=== PATIENT | female | born 1955 | race African-American/Black ===

== ENCOUNTER → 2017-05-03 | Outpatient (CLI) | payer BC ==
[~2017-05-03] MED LIST: AMLO5TAB2 PO; CLON0.1T PO; DORZ2SOL EACHEYE; DYA375C PO; LATA0.00 OP; LOS50T PO; METO25TA3 PO; METO25TA5 PO; NORVASC PO; PANT1INJ3 PO; PANTPAK PO; RANITAB32 OR; SIMV-8 PO; TRIATAB3 PO
[2017-05-03 10:18] LABS: Basophils # (auto) 0 uL; Basophils % (auto) 0.9 % (0.0-2.0); CONDITION Y; Eosinophils # (auto) 0.1 uL; Eosinophils % (auto) 2.6 % (0.0-7.0); Hematocrit 40.4 % (36.0-46.0); Hemoglobin 13.8 g/dL (12.2-16.2); Lymphocytes % (auto) 39.7 % (10.0-50.0); Mean Corpuscular Hemoglobin 30.5 pg (28.0-32.0); Mean Corpuscular Hgb Conc. 34.1 g/dL (32.0-36.0); Mean Corpuscular Volume 89.5 fL (80.0-100.0); Mean Platelet Volume 7.9 fL (7.4-10.4); Monocytes # (auto) 0.4 uL; Monocytes % (auto) 7.2 % (0.0-12.0); Neutrophils # (auto) 2.5 uL; Neutrophils % (auto) 49.6 % (37.0-80.0); Platelet Count (auto) 320 10^3/uL (140-450); Red Cell Distribution Width 12.7 % (11.6-16.0)
[2017-05-03 10:33] LABS: Albumin 3.8 g/dL (3.4-5.0); Alkaline Phosphatase 49 U/L (45-117); Anion Gap 8 (5-15); Aspartate Aminotransferase 22 U/L (15-37); BUN/Creatinine Ratio 21.6; Bilirubin, Total 0.7 mg/dL (0.2-1.0); Blood Urea Nitrogen 19 mg/dL (7-18); Calcium 8.9 mg/dL (8.5-10.1); Carbon Dioxide 26 mmol/L (21-32); Chloride 106 mmol/L (98-107); Cholesterol 116 mg/dL (< 200); GFR African American 84 mL/min; GFR Non-African American 69 mL/min; Glucose 103 mg/dL (74-106); HDL Cholesterol 65 mg/dL (40-59); LDL Cholesterol 55 mg/dL (< 100); Potassium 3.6 mmol/L (3.5-5.1); Sodium 140 mmol/L (136-145); Total Protein 7.5 g/dL (6.4-8.2); Triglycerides 82 mg/dL (< 150)
== END | disposition home or self-care (01) ==
LOC: LAB 09:43
PROVIDERS: ATTEND Physician Assistant
DX: B19.20 Unspecified viral hepatitis C without hepatic coma (principal); E11.9 Type 2 diabetes mellitus without complications; E88.81 Metabolic syndrome and other insulin resistance; J45.998 Other asthma
CPT/HCPCS: 36415; 80053; 80061; 82306; 83036; 84484; 85025; 87522

== ENCOUNTER → 2017-08-21 | Outpatient (CLI) | payer BC ==
[~2017-08-21] MED LIST changes: -LATA0.00 OP; +LATA0.0020 OP
[2017-08-21 11:10] LABS: Urine Bilirubin Negative (Negative); Urine Blood Negative /uL (Negative); Urine Glucose Normal (Normal); Urine Ketone Negative (Negative); Urine Mucus FEW (None Seen); Urine Nitrite Negative (Negative); Urine RBC <1 /hpf (0 - 4); Urine Urobilinogen Normal (Negative); Urine pH 6.5 (5.0-8.0)
[2017-08-21 11:11] LABS: Basophils # (auto) 0.1 uL; Basophils % (auto) 1.2 % (0.0-2.0); Eosinophils # (auto) 0.1 uL; Eosinophils % (auto) 1.4 % (0.0-7.0); Hematocrit 40.3 % (36.0-46.0); Lymphocytes # (auto) 2.3 uL; Mean Corpuscular Hemoglobin 31.7 pg (28.0-32.0); Mean Corpuscular Hgb Conc. 34.6 g/dL (32.0-36.0); Mean Corpuscular Volume 91.6 fL (80.0-100.0); Mean Platelet Volume 7.4 fL (6.9-10.8); Monocytes # (auto) 0.5 uL; Monocytes % (auto) 6.7 % (0.0-12.0); Neutrophils # (auto) 4.1 uL; Neutrophils % (auto) 57.7 % (37.0-80.0); Nucleated Red Blood Cells % 0.1 %; Platelet Count (auto) 324 10^3/uL (140-450); Red Cell Distribution Width 13.1 % (11.8-14.3)
[2017-08-21 11:26] LABS: Urine Color Straw (Yellow)
[2017-08-21 11:35] LABS: Albumin 3.9 g/dL (3.4-5.0); BUN/Creatinine Ratio 15.8; Bilirubin, Total 0.7 mg/dL (0.2-1.0); Calcium 8.9 mg/dL (8.5-10.1); Potassium 3.5 mmol/L (3.5-5.1); Total Protein 7.8 g/dL (6.4-8.2)
== END ==
LOC: LAB 10:48
PROVIDERS: ATTEND Internal Medicine
DX: I10 Essential (primary) hypertension (principal)
CPT/HCPCS: 36415; 80053; 81001; 84443; 85025

== ENCOUNTER → 2017-09-14 | Outpatient (CLI) | payer BC | END | disposition home or self-care (01) | LOC: XYW 13:43 | PROVIDERS: ATTEND Internal Medicine | DX: K76.0 Fatty (change of) liver, not elsewhere classified (principal) | CPT/HCPCS: 76705 ==

== ENCOUNTER → 2017-12-13 | Outpatient (CLI) | payer BC ==
[2017-12-13 13:07] LABS: Basophils # (auto) 0.1 uL; Basophils % (auto) 2.4 % (0.0-2.0); Eosinophils # (auto) 0.2 uL; Hematocrit 44.1 % (36.0-46.0); Hemoglobin 14.7 g/dL (12.2-16.2); Lymphocytes # (auto) 2.1 uL; Lymphocytes % (auto) 34.8 % (10.0-50.0); Mean Corpuscular Hemoglobin 30.1 pg (28.0-32.0); Mean Corpuscular Hgb Conc. 33.4 g/dL (32.0-36.0); Mean Corpuscular Volume 90.2 fL (80.0-100.0); Monocytes # (auto) 0.4 uL; Neutrophils # (auto) 3.3 uL; Neutrophils % (auto) 53.8 % (37.0-80.0); Nucleated Red Blood Cells % 0.4 %; Platelet Count (auto) 325 10^3/uL (140-450); Red Blood Cells 4.89 10^6/uL (4.0-5.20); Red Cell Distribution Width 12.8 % (11.8-14.3); White Blood Cell 6.2 10^3/uL (4.4-10.8)
[2017-12-13 14:04] LABS: Urine Bacteria NONE SEEN /hpf (None Seen); Urine Blood Negative /uL (Negative); Urine Specific Gravity 1.012 (1.001-1.035); Urine WBC 13 /hpf (0 - 5)
[2017-12-13 14:26] LABS: Folate (Folic Acid) 17.53 ng/mL (5.38-24)
[2017-12-13 14:27] LABS: Albumin 3.9 g/dL (3.4-5.0); BUN/Creatinine Ratio 14.6; Bilirubin, Total 0.7 mg/dL (0.2-1.0); CRP High Sensitivity 0.16 mg/dL (< 0.3); Calcium 9.4 mg/dL (8.5-10.1); Potassium 3.7 mmol/L (3.5-5.1); Total Protein 8.2 g/dL (6.4-8.2)
[2017-12-14 08:28] LABS: Hepatitis B Surface Antibody Positive
[2017-12-14 08:43] LABS: Hepatitis B Surface Antigen Negative (Negative)
[2017-12-14 09:06] LABS: Hepatitis A Total Antibody Positive; Hepatitis B Core Total AB Negative
[2017-12-14 09:11] LABS: Hepatitis C Antibody Positive (Negative)
== END | disposition home or self-care (01) ==
LOC: LAB 12:10
PROVIDERS: ATTEND Nurse Practitioner
DX: E11.22 Type 2 diabetes mellitus with diabetic chronic kidney disease (principal); I12.9 Hypertensive chronic kidney disease with stage 1 through stage 4 chronic kidney disease, or unspecified chronic kidney disease; N18.3 Chronic kidney disease, stage 3 (moderate); K21.9 Gastro-esophageal reflux disease without esophagitis; R19.7 Diarrhea, unspecified
CPT/HCPCS: 36415; 80053; 80061; 81001; 82043; 82607; 82746; 83036; 84443; 85025; 86141; 86704; 86706; 86708; 86803; 87340

== ENCOUNTER → 2017-12-18 | Outpatient (CLI) | payer BC | END | disposition home or self-care (01) | LOC: LAB 13:28 | PROVIDERS: ATTEND Nurse Practitioner | DX: E11.9 Type 2 diabetes mellitus without complications (principal); K21.9 Gastro-esophageal reflux disease without esophagitis; R19.7 Diarrhea, unspecified | CPT/HCPCS: 82270 ==

== ENCOUNTER → 2017-12-25 | Outpatient (CLI) | payer BC ==
[2017-12-25 13:16] LABS: Free T4 (Free Thyroxine) 1.16 ng/dL (0.89-1.76)
[2017-12-25 13:17] LABS: Free T3 2.43 pg/mL (2.3-4.2)
== END | disposition home or self-care (01) ==
LOC: LAB 12:22
PROVIDERS: ATTEND Nurse Practitioner
DX: K03.9 Disease of hard tissues of teeth, unspecified (principal)
CPT/HCPCS: 36415; 84439; 84443; 84481

== ENCOUNTER → 2018-01-11 | Outpatient (CLI) | payer BC | END | disposition home or self-care (01) | LOC: LAB 15:05 | PROVIDERS: ATTEND Internal Medicine Gastroenterology | DX: R10.9 Unspecified abdominal pain (principal) | CPT/HCPCS: 82705; 82784; 83516; 86255 ==

== ENCOUNTER → 2018-01-22 | Outpatient (CLI) | payer BC | END | disposition home or self-care (01) | LOC: LAB 11:49 | PROVIDERS: ATTEND Internal Medicine | DX: Z01.89 Encounter for other specified special examinations (principal); I13.0 Hypertensive heart and chronic kidney disease with heart failure and stage 1 through stage 4 chronic kidney disease, or unspecified chronic kidney disease; N18.2 Chronic kidney disease, stage 2 (mild); I50.32 Chronic diastolic (congestive) heart failure; K21.9 Gastro-esophageal reflux disease without esophagitis | CPT/HCPCS: 36415; 83880; 85379; 87804 ==

== ENCOUNTER → 2018-03-05 | Outpatient (CLI) | payer BC ==
[~2018-03-05] MED LIST changes: +IOHEXOL 350 MG/ML 100ML IJ ONE
[2018-03-05 09:00] VITALS: BP 132/66
== END | disposition home or self-care (01) ==
LOC: XYW 08:28
PROVIDERS: ATTEND Internal Medicine Cardiovascular Disease
DX: J45.909 Unspecified asthma, uncomplicated (principal); I10 Essential (primary) hypertension; E88.81 Metabolic syndrome and other insulin resistance
CPT/HCPCS: 93017

== ENCOUNTER 2018-03-13 07:53 | Day surgery (SDC) | payer BC ==
[~2018-03-13] VITALS: Ht 154.9 cm; Wt 81.6 kg
[~2018-03-13 07:53] MED LIST changes: -IOHEXOL 350 MG/ML 100ML IJ ONE
[2018-03-13] MEDS ORDERED: NITROGLYCERIN 0.4 MG SL TAB SL ONE (08:00)
[2018-03-13] MEDS ORDERED: ASPirin 81 mg TAB PO ONE (08:00)
[2018-03-13] MEDS ORDERED: METOPROLOL TARTRATE 25 MG TAB PO ONE (08:15)
[2018-03-13 08:55] LABS: Basophils # (auto) 0.1 uL; Basophils % (auto) 1.2 % (0.0-2.0); Eosinophils # (auto) 0.1 uL; Eosinophils % (auto) 1.8 % (0.0-7.0); Hemoglobin 14.6 g/dL (12.2-16.2); Lymphocytes % (auto) 33.5 % (10.0-50.0); Mean Corpuscular Hemoglobin 30.6 pg (28.0-32.0); Mean Corpuscular Volume 89.8 fL (80.0-100.0); Monocytes # (auto) 0.4 uL; Monocytes % (auto) 7.6 % (0.0-12.0); Neutrophils # (auto) 3.3 uL; Neutrophils % (auto) 55.9 % (37.0-80.0); Nucleated Red Blood Cells % 0.1 %; Platelet Count (auto) 305 10^3/uL (140-450); Red Blood Cells 4.79 10^6/uL (4.0-5.20); White Blood Cell 5.9 10^3/uL (4.4-10.8)
[2018-03-13 09:04] LABS: INR 0.95 (0.9-1.15); Partial Thromboplastin Time 29.1 sec (22.64-33.71); Prothrombin Time 10.4 sec (9.37-12.3)
[2018-03-13 09:17] LABS: Alanine Aminotransferase 32 U/L (13-56); Albumin 3.8 g/dL (3.4-5.0); Alkaline Phosphatase 58 U/L (45-117); Anion Gap 8 (5-15); Aspartate Aminotransferase 24 U/L (15-37); Bilirubin, Total 0.6 mg/dL (0.2-1.0); Blood Urea Nitrogen 16 mg/dL (7-18); Calcium 9.4 mg/dL (8.5-10.1); Carbon Dioxide 28 mmol/L (21-32); Chloride 103 mmol/L (98-107); GFR African American 77 mL/min; GFR Non-African American 64 mL/min; Glucose 120 mg/dL (74-106); Potassium 3.9 mmol/L (3.5-5.1); Sodium 139 mmol/L (136-145); Total Protein 7.7 g/dL (6.4-8.2)
[2018-03-13] MEDS ORDERED: SODIUM CHLORIDE 0.9% 1,000 ML IV ONE ×2 (11:36)
[2018-03-13 12:58] VITALS: BP 153/87
[2018-03-13] MEDS ORDERED: ANGIOMAX 250 MG VIAL IV ONE (15:23)
[2018-03-13] MEDS ORDERED: fentaNYL CITRATE 100 MCG/2 ML VL ONE (15:23)
[2018-03-13] MEDS ORDERED: IODIXANOL 320MG/ML 100ML BTL IV ONE (15:24)
[2018-03-13] MEDS ORDERED: SODIUM CHL 0.9% 0 ML ONE (15:24)
[2018-03-13] MEDS ORDERED: MIDAZOLAM HCL 1MG/1ML-2 ML VIAL ONE (15:24)
[2018-03-13] MEDS ORDERED: diphenhdrAMINE HCL 50 MG/1 ML VL ONE (15:25)
[2018-03-13] MEDS ORDERED: LIDOCAINE 2%HCL (LOCAL ANESTH.) INJ 20ML MDV ONE (15:27)
[2018-03-13] MEDS ORDERED: VERAPAMIL 2.5MG/ML INJ 2ML VIAL IV ONE (15:37)
[2018-03-13] MEDS ORDERED: ONDANSETRON HCL 4 MG/2 ML VIAL ONE (15:46)
[2018-03-13] MEDS ORDERED: HEPARIN 1,000 UNITS/ml 1ML VIAL ONE (15:49)
[2018-03-13] MEDS ORDERED: ACETAMINOPHEN 500 MG TAB PO ONE ×2 (18:00→18:02)
== END 2018-03-13 18:45 | disposition home or self-care (01) ==
LOC: ER 07:53 → CATH 1 11:59
PROVIDERS: ATTEND Internal Medicine Cardiovascular Disease
DX: I11.9 Hypertensive heart disease without heart failure (principal); E66.9 Obesity, unspecified; Z68.34 Body mass index [BMI] 34.0-34.9, adult; E11.39 Type 2 diabetes mellitus with other diabetic ophthalmic complication; H40.9 Unspecified glaucoma; E78.00 Pure hypercholesterolemia, unspecified; I10 Essential (primary) hypertension; J45.909 Unspecified asthma, uncomplicated; G47.30 Sleep apnea, unspecified; Z90.710 Acquired absence of both cervix and uterus; Z87.891 Personal history of nicotine dependence; E78.5 Hyperlipidemia, unspecified
CPT/HCPCS: 36415; 71045; 71275; 80053; 82962; 83880; 84443; 84484; 85025; 85610; 85730; 93005; 93306; 93458; C1887; C1894; J1200; J1644; J2250; J7030; Q9967; 99152; J2405

== ENCOUNTER → 2018-07-09 | Outpatient (CLI) | payer BC ==
[~2018-07-09] MED LIST changes: -DORZ2SOL EACHEYE; +DORZ2SOL17 EACHEYE; -METO25TA3 PO; +METO25TA4 PO
[2018-07-09 15:06] LABS: BUN/Creatinine Ratio 14.6; Calcium 8.8 mg/dL (8.5-10.1); Potassium 3.5 mmol/L (3.5-5.1)
[2018-07-12 20:10] LABS: IgE Mouse Urine <0.10 kU/L (Class 0)
== END | disposition home or self-care (01) ==
LOC: LAB 14:00
PROVIDERS: ATTEND Internal Medicine Pulmonary Disease
DX: J45.909 Unspecified asthma, uncomplicated (principal)
CPT/HCPCS: 36415; 80048; 82785

== ENCOUNTER → 2018-08-23 | Outpatient (CLI) | payer BC ==
[~2018-08-23] MED LIST changes: +AMLO5TAB13 PO; -AMLO5TAB2 PO
[2018-08-23 09:57] LABS: Urine Bacteria NONE SEEN /hpf (None Seen); Urine Blood Negative /uL (Negative); Urine Mucus FEW (None Seen); Urine Specific Gravity 1.019 (1.001-1.035); Urine WBC 1 /hpf (0 - 5)
[2018-08-23 10:28] LABS: Albumin 3.6 g/dL (3.4-5.0); Calcium 9.1 mg/dL (8.5-10.1)
[2018-08-23 10:30] LABS: BUN/Creatinine Ratio 13.7; Total Protein 7.9 g/dL (6.4-8.2)
[2018-08-23 10:37] LABS: Bilirubin, Total 0.8 mg/dL (0.2-1.0)
== END | disposition home or self-care (01) ==
LOC: LAB 09:30
PROVIDERS: ATTEND Nurse Practitioner
DX: E78.5 Hyperlipidemia, unspecified (principal); E55.9 Vitamin D deficiency, unspecified
CPT/HCPCS: 36415; 80053; 80061; 81001; 82043; 82306; 83036; 84443

== ENCOUNTER → 2018-12-04 | Outpatient (CLI) | payer BC | END | disposition home or self-care (01) | LOC: XYW 14:21 | PROVIDERS: ATTEND Psychiatry & Neurology Neurology | DX: I63.9 Cerebral infarction, unspecified (principal) | CPT/HCPCS: 93886 ==

== ENCOUNTER 2019-02-12 14:18 | Emergency (ER) | payer BC ==
[~2019-02-12] VITALS: Ht 152.4 cm; Wt 79.4 kg
[2019-02-12] MEDS ORDERED: SODIUM CHLORIDE 0.9% 1,000 ML IV ONE ×3 (14:28→14:30)
[2019-02-12] MEDS ORDERED: IOHEXOL 300 MG/ML 100ML BOTTLE IJ ONE (14:33)
[2019-02-12 14:39] LABS: Basophils # (auto) 0.1 uL; Basophils % (auto) 1.6 % (0.0-2.0); Eosinophils # (auto) 0.1 uL; Eosinophils % (auto) 1.5 % (0.0-7.0); Hematocrit 45.7 % (36.0-46.0); Hemoglobin 15.4 g/dL (12.2-16.2); Lymphocytes # (auto) 2.5 uL; Lymphocytes % (auto) 35.4 % (10.0-50.0); Mean Corpuscular Hemoglobin 30.9 pg (28.0-32.0); Mean Corpuscular Hgb Conc. 33.7 g/dL (32.0-36.0); Mean Corpuscular Volume 91.4 fL (80.0-100.0); Monocytes # (auto) 0.6 uL; Monocytes % (auto) 8.2 % (0.0-12.0); Neutrophils # (auto) 3.7 uL; Neutrophils % (auto) 53.3 % (37.0-80.0); Nucleated Red Blood Cells % 0.2 %; Platelet Count (auto) 317 10^3/uL (140-450); Red Cell Distribution Width 12.6 % (11.8-14.3)
[2019-02-12 14:55] LABS: INR 0.95 (0.9-1.15); Partial Thromboplastin Time 29.9 sec (23.78-33.04); Prothrombin Time 10.2 sec (9.27-12.13)
[2019-02-12 14:57] LABS: Alanine Aminotransferase 33 U/L (13-56); Albumin 4.2 g/dL (3.4-5.0); Anion Gap 4 (5-15); Aspartate Aminotransferase 23 U/L (15-37); BUN/Creatinine Ratio 19.5; Blood Urea Nitrogen 17 mg/dL (7-18); Calcium 9.7 mg/dL (8.5-10.1); Carbon Dioxide 29 mmol/L (21-32); Chloride 104 mmol/L (98-107); GFR African American 84 mL/min; GFR Non-African American 70 mL/min; Glucose 95 mg/dL (74-106); Magnesium 2.3 mg/dL (1.6-2.6); Potassium 4.1 mmol/L (3.5-5.1); Sodium 137 mmol/L (136-145)
[2019-02-12 15:02] LABS: Alkaline Phosphatase 67 U/L (45-117); Bilirubin, Total 0.5 mg/dL (0.2-1.0); Total Protein 8.7 g/dL (6.4-8.2)
[2019-02-12 16:28] VITALS: BP 138/60
[2019-02-12] MEDS ORDERED: KETOROLAC TROMETH 30 MG/ML 1ML VIAL IV ONE (16:30)
[2019-02-12 16:36] LABS: Urine Bacteria NONE SEEN /hpf (None Seen); Urine Blood Negative /uL (Negative); Urine Specific Gravity 1.013 (1.001-1.035); Urine WBC <1 /hpf (0 - 5)
[2019-02-14 15:16] LABS: Amylase 62 U/L (25-115); Lipase 193 U/L (73-393)
== END 2019-02-12 17:14 | disposition home or self-care (01) ==
LOC: ER 14:21
DX: M79.10 Myalgia, unspecified site (principal); E11.9 Type 2 diabetes mellitus without complications; J45.909 Unspecified asthma, uncomplicated; I10 Essential (primary) hypertension; E78.5 Hyperlipidemia, unspecified; Z79.899 Other long term (current) drug therapy
CPT/HCPCS: 36415; 71046; 71260; 74177; 80053; 81001; 82150; 83036; 83690; 83735; 84484; 85025; 85610; 85730; 93005; 99284; J7030; Q9967

== ENCOUNTER 2019-04-30 08:59 | Emergency (ER) | payer BC ==
[~2019-04-30] VITALS: Ht 154.9 cm; Wt 80.7 kg
[2019-04-30] MEDS ORDERED: HYDROcodone-ACET 10/325MG TAB PO ONE (09:30)
[2019-04-30 10:55] VITALS: BP 144/70
== END 2019-04-30 10:56 | disposition home or self-care (01) ==
LOC: ER 09:03
DX: R51 Headache (principal); E11.9 Type 2 diabetes mellitus without complications; E78.5 Hyperlipidemia, unspecified; I10 Essential (primary) hypertension; J45.909 Unspecified asthma, uncomplicated; Z90.710 Acquired absence of both cervix and uterus; Z79.899 Other long term (current) drug therapy
CPT/HCPCS: 70450

== ENCOUNTER → 2019-05-10 | Outpatient (CLI) | payer BC | END | disposition home or self-care (01) | LOC: LAB 11:47 | DX: H57.11 Ocular pain, right eye (principal); M25.50 Pain in unspecified joint | CPT/HCPCS: 36415; 85652; 86141 ==

== ENCOUNTER 2019-07-22 15:24 | Inpatient (IN) | payer BC ==
[~2019-07-22] VITALS: Ht 154.9 cm; Wt 86.0 kg
[~2019-07-22 15:24] MED LIST changes: -AMLO5TAB13 PO; +AMLO5TAB15 PO; +METO25TA36 PO; -METO25TA4 PO
[2019-07-22 16:30] LABS: Albumin 3.6 g/dL (3.4-5.0); BUN/Creatinine Ratio 17.7; Calcium 8.8 mg/dL (8.5-10.1); Potassium 3.2 mmol/L (3.5-5.1)
[2019-07-22 16:33] LABS: Bilirubin, Total 0.9 mg/dL (0.2-1.0); Total Protein 7.7 g/dL (6.4-8.2)
[2019-07-22] MEDS ORDERED: SODIUM CHLORIDE 0.9% 1,000 ML IV ONE (17:00)
[2019-07-22 17:13] LABS: Urine Bacteria FEW /hpf (None Seen); Urine Blood Negative /uL (Negative); Urine Specific Gravity 1.011 (1.001-1.035); Urine WBC 3 /hpf (0 - 5)
[2019-07-22] MEDS ORDERED: ONDANSETRON HCL 4 MG/2 ML VIAL IV ONE (17:15)
[2019-07-22] MEDS ORDERED: MORPHINE SULF INJ 2 MG/ML SYRINGE 1ML IV PRN ×2 (18:00)
[2019-07-22] MEDS: SOD CHL 0.9%/ KCL 20MEQ 1,000 ML IV SCH (18:00)
[2019-07-22] MEDS ORDERED: ACETAMINOPHEN 500 MG TAB PO PRN (18:00)
[2019-07-22] MEDS ORDERED: LEVOFLOXACIN 500MG 100 ML IV ONE (18:00)
[2019-07-22] MEDS ORDERED: NITROGLYCERIN 0.4 MG SL TAB SL PRN (18:00)
[2019-07-22 18:11] LABS: Basophils # (auto) 0.1 uL; Basophils % (auto) 0.5 % (0.0-2.0); Eosinophils # (auto) 0.1 uL; Eosinophils % (auto) 0.9 % (0.0-7.0); Hemoglobin 14.1 g/dL (12.2-16.2); Lymphocytes # (auto) 1.2 uL; Lymphocytes % (auto) 12.1 % (10.0-50.0); Mean Corpuscular Hemoglobin 31.1 pg (28.0-32.0); Mean Corpuscular Hgb Conc. 33.6 g/dL (32.0-36.0); Mean Corpuscular Volume 92.5 fL (80.0-100.0); Monocytes # (auto) 0.5 uL; Monocytes % (auto) 5.1 % (0.0-12.0); Neutrophils # (auto) 7.7 uL; Neutrophils % (auto) 81.4 % (37.0-80.0); Nucleated Red Blood Cells % 0.3 %; Platelet Count (auto) 278 10^3/uL (140-450); Red Blood Cells 4.54 10^6/uL (4.0-5.20); Red Cell Distribution Width 12.7 % (11.8-14.3); White Blood Cell 9.5 10^3/uL (4.4-10.8)
[2019-07-22] MEDS ORDERED: cloNIDine HCL 0.1 MG TAB PO PRN (18:15)
--- NOTE | 2019-07-22 18:41 | NUR ---
report from ER received report from ER nurse
[2019-07-22] MEDS: KETOROLAC TROMETH 30 MG/ML 1ML VIAL IV PRN (19:06)
--- NOTE | 2019-07-22 19:38 | NUR ---
OPENING NOTES RECEIVED REPORT FROM DAY SHIFT NURSE, JC. PT IS AWAKE AND ALERT AND ORIENTATED X4 WITH NO S/S OF DISTRESS NOR PAIN. NO S/S OF SOB. PT'S SON IS AT BEDSIDE. PT IS IN A PRIVATE ROOM. BED IS IN LOWEST POSITION WITH SIDE RAILS UP X 2. CALL LIGHT IS WITHIN REACH AND BED BRAKES ARE LOCKED. WILL MONITOR Q 1HR.
[2019-07-22] MEDS: metroNIDAZOLE 500MG/100ML 100 ML IV SCH (21:41)
[2019-07-22] MEDS: LATANOPROST 0.005 % OPTH(EYE) SOL 2.5ML OP SCH (21:41)
[2019-07-22] MEDS: DORZOLAMIDE HCL 2% OPTH(EYE) SOL 10ML EACHEYE SCH (21:41)
[2019-07-22] MEDS: cloNIDine HCL 0.1 MG TAB PO SCH (21:42)
[2019-07-22] MEDS: METOPROLOL SUCCINATE XL 50 MG TAB PO SCH (21:43)
[2019-07-22 21:47] VITALS: BP 156/70
[2019-07-22] MEDS ORDERED: FAMOTIDINE (10MG/ML) 2ML VL IV SCH (22:00)
[2019-07-22] MEDS ORDERED: CALC600T37 PO (23:33)
[2019-07-22] MEDS ORDERED: LORA-622 PO (23:33)
[2019-07-22] MEDS ORDERED: ASPI-231 PO (23:33)
[2019-07-22] MEDS ORDERED: BUDE0.5S IN (23:33)
[2019-07-22] MEDS ORDERED: BIMA0.01 EACHEYE (23:33)
[2019-07-22] MEDS ORDERED: POTA1080 PO (23:33)
[2019-07-22] MEDS ORDERED: BIOT10TA2 PO (23:33)
[2019-07-22] MEDS ORDERED: PANT40TA2 PO (23:33)
[2019-07-22] MEDS ORDERED: OMEGCAP2 PO (23:33)
[2019-07-22] MEDS ORDERED: MULT-242 OR (23:33)
[2019-07-22] MEDS ORDERED: NIFE30TA77 PO (23:33)
[2019-07-22] MEDS ORDERED: ZINC50TA2 PO (23:33)
[2019-07-23] MEDS: ONDANSETRON HCL 4 MG/2 ML VIAL IV PRN ×2 (04:33→10:25)
[2019-07-23 05:20] VITALS: BP 132/65
[2019-07-23] MEDS: metroNIDAZOLE 500MG/100ML 100 ML IV SCH ×3 (05:30→21:20)
[2019-07-23 06:26] LABS: Basophils # (auto) 0.1 uL; Basophils % (auto) 0.5 % (0.0-2.0); Eosinophils # (auto) 0.2 uL; Hematocrit 39.7 % (36.0-46.0); Hemoglobin 13.3 g/dL (12.2-16.2); Lymphocytes # (auto) 1.4 uL; Lymphocytes % (auto) 14.2 % (10.0-50.0); Mean Corpuscular Hemoglobin 30.9 pg (28.0-32.0); Mean Corpuscular Hgb Conc. 33.4 g/dL (32.0-36.0); Mean Corpuscular Volume 92.7 fL (80.0-100.0); Monocytes # (auto) 0.7 uL; Monocytes % (auto) 7.1 % (0.0-12.0); Neutrophils # (auto) 7.8 uL; Neutrophils % (auto) 76.2 % (37.0-80.0); Platelet Count (auto) 245 10^3/uL (140-450); Red Blood Cells 4.28 10^6/uL (4.0-5.20); Red Cell Distribution Width 12.4 % (11.8-14.3); White Blood Cell 10.2 10^3/uL (4.4-10.8)
[2019-07-23 06:39] LABS: INR 1.03 (0.9-1.15); Partial Thromboplastin Time 31.9 sec (23.64-32.05)
[2019-07-23 06:49] LABS: Albumin 3.1 g/dL (3.4-5.0); Calcium 8.1 mg/dL (8.5-10.1); Potassium 3.4 mmol/L (3.5-5.1)
[2019-07-23 06:52] LABS: BUN/Creatinine Ratio 13.1; Bilirubin, Total 0.9 mg/dL (0.2-1.0); Total Protein 6.7 g/dL (6.4-8.2)
--- NOTE | 2019-07-23 07:22 | NUR ---
CLOSING NOTES ENDORSED CARE TO DAY SHIFT NURSEFARHAT.
--- NOTE | 2019-07-23 08:00 | NUR ---
Opening Shift Note Assumed care of patient, awake and alert. No S/S of distress/SOB or pain. Instructed on POC and to call for assist PRN, will continue to monitor for changes Q1hr and PRN. Addendum: 07/23/19 at 1903 by MARIO NAZARIO RN wrong patient
[2019-07-23] MEDS: SOD CHL 0.9%/ KCL 20MEQ 1,000 ML IV SCH ×2 (08:39→18:13)
[2019-07-23 08:45] VITALS: BP 141/73
[2019-07-23] MEDS ORDERED: POTASSIUM CHLORIDE 40 MEQ, LIDOCAINE 1% (LOCAL ANESTH.) 4 ML in SODIUM CHL 0.9% 100 ML IV ONE (09:45)
[2019-07-23] MEDS ORDERED: PANTOPRAZOLE 40 MG TAB PO SCH (10:00)
[2019-07-23] MEDS: NIFEdipine ER 30 MG TAB PO SCH (10:19)
[2019-07-23] MEDS: cloNIDine HCL 0.1 MG TAB PO SCH (10:20)
[2019-07-23] MEDS: DORZOLAMIDE HCL 2% OPTH(EYE) SOL 10ML EACHEYE SCH ×2 (10:20→21:22)
[2019-07-23] MEDS: LEVOFLOXACIN 500MG 100 ML IV SCH (11:15)
[2019-07-23] MEDS ORDERED: DICYCLOMINE HCL 10 MG CAP PO ONE (12:00)
[2019-07-23] MEDS ORDERED: DICYCLOMINE HCL (10MG/ML) 2 ML AMPULE IM SCH (12:00)
[2019-07-23] MEDS ORDERED: POTASSIUM CHL 20 Meq TABLET PO ONE (12:30)
[2019-07-23 12:36] VITALS: BP 124/69
[2019-07-23] MEDS: DICYCLOMINE HCL 10 MG CAP PO SCH ×2 (14:00→21:20)
[2019-07-23] MEDS: VANCOMYCIN HCL 125MG/5ML ORAL SOL PO SCH ×3 (14:21→21:28)
--- NOTE | 2019-07-23 15:30 | NUR ---
Assumed care of patient from other RN. Patient ambulating in room uncomplaining. No obvious signs of distress SOB/pain. Patient encouraged to call for assistance as needed.
--- NOTE | 2019-07-23 16:10 | NUR ---
Patient ambulating on unit. No obvious distress at this time. Addendum: 07/23/19 at 1903 by MARIO NAZARIO RN wrong patient
[2019-07-23 17:00] VITALS: BP 133/73
--- NOTE | 2019-07-23 17:50 | NUR ---
Pain Patient stated that the Toradol did not help the pain in her left shoulder and it has gotten more severe. IV Dilaudid to be given. Addendum: 07/23/19 at 1903 by MARIO NAZARIO RN wrong patient
[2019-07-23] MEDS: PANTOPRAZOLE 40 MG TAB PO SCH (21:21)
[2019-07-23] MEDS: METOPROLOL SUCCINATE XL 50 MG TAB PO SCH (21:21)
[2019-07-23] MEDS: LATANOPROST 0.005 % OPTH(EYE) SOL 2.5ML OP SCH (21:22)
[2019-07-23] MEDS ORDERED: SIMV-13 PO (21:32)
[2019-07-23] MEDS ORDERED: cloNIDine HCL 0.1 MG TAB PO SCH (22:00)
[2019-07-23 22:20] VITALS: BP 128/75
[2019-07-23] MEDS: ALPRAZolam 0.25 MG TAB PO PRN (22:30)
--- NOTE | 2019-07-23 22:30 | NUR ---
PATIENT REQUESTING HER XANAX TO HELP RELAX HER AND SO SHE CAN GO TO SLEEP. ADMINSITERED XANAX 0.25MG PO PRESCRIBED. PATIENT TOLERATED WELL. WILL CONTINUE TO MONITOR PATIENT.
[2019-07-24 04:34] VITALS: BP 100/53
[2019-07-24] MEDS: metroNIDAZOLE 500MG/100ML 100 ML IV SCH ×3 (06:00→21:06)
[2019-07-24] MEDS: VANCOMYCIN HCL 125MG/5ML ORAL SOL PO SCH (06:00)
[2019-07-24] MEDS: DICYCLOMINE HCL 10 MG CAP PO SCH ×3 (06:00→21:02)
[2019-07-24 06:24] LABS: Basophils # (auto) 0.1 uL; Basophils % (auto) 0.8 % (0.0-2.0); Eosinophils # (auto) 0.1 uL; Eosinophils % (auto) 1.8 % (0.0-7.0); Hematocrit 36.6 % (36.0-46.0); Hemoglobin 12.7 g/dL (12.2-16.2); Lymphocytes # (auto) 1.7 uL; Lymphocytes % (auto) 20.9 % (10.0-50.0); Mean Corpuscular Hgb Conc. 34.6 g/dL (32.0-36.0); Mean Corpuscular Volume 92.4 fL (80.0-100.0); Monocytes # (auto) 0.6 uL; Monocytes % (auto) 7.4 % (0.0-12.0); Neutrophils # (auto) 5.6 uL; Neutrophils % (auto) 69.1 % (37.0-80.0); Platelet Count (auto) 232 10^3/uL (140-450); Red Blood Cells 3.96 10^6/uL (4.0-5.20); Red Cell Distribution Width 12.8 % (11.8-14.3)
[2019-07-24 06:49] LABS: Albumin 2.9 g/dL (3.4-5.0); Calcium 7.8 mg/dL (8.5-10.1); Potassium 3.8 mmol/L (3.5-5.1)
[2019-07-24 06:52] LABS: BUN/Creatinine Ratio 10.3; Bilirubin, Total 0.5 mg/dL (0.2-1.0); Total Protein 6.3 g/dL (6.4-8.2)
[2019-07-24] MEDS ORDERED: cloNIDine HCL 0.1 MG TAB PO SCH ×3 (07:00→22:00)
--- NOTE | 2019-07-24 07:40 | NUR ---
OPENING NOTE Assumed care of patient from NOC RNEsther. Patient awake and alert with no S/S of distress/SOB or pain. Instructed on POC and to call for assist PRN, verbalized understanding. Bed in lowest, locked position with side rails up x2 and call light within reach. Will continue to monitor for changes Q1hr and PRN.
[2019-07-24 08:44] VITALS: BP 105/56
[2019-07-24] MEDS: LEVOFLOXACIN 500MG 100 ML IV SCH (10:08)
[2019-07-24] MEDS: NIFEdipine ER 30 MG TAB PO SCH (10:09)
[2019-07-24] MEDS: DORZOLAMIDE HCL 2% OPTH(EYE) SOL 10ML EACHEYE SCH ×2 (10:10→21:03)
[2019-07-24] MEDS: PANTOPRAZOLE 40 MG TAB PO SCH ×2 (10:10→21:02)
[2019-07-24] MEDS: SOD CHL 0.9%/ KCL 20MEQ 1,000 ML IV SCH ×3 (10:10→19:58)
--- NOTE | 2019-07-24 10:50 | NUR ---
AT BEDSIDE Dr. Bryant at patient's bedside.
--- NOTE | 2019-07-24 12:14 | NUR ---
AT BEDSIDE Dr. Vázquez at patient's bedside.
[2019-07-24 13:00] VITALS: BP 123/73
--- NOTE | 2019-07-24 14:30 | NUR ---
ROUNDS Patient sitting in bedside chair. No S/S of distress/SOB or pain noted. Will continue to monitor Q1hr/PRN.
[2019-07-24] MEDS: FLORASTOR (S. BOULARDII) 250 MG CAP PO SCH (14:38)
[2019-07-24 17:00] VITALS: BP 118/69
--- NOTE | 2019-07-24 17:15 | NUR ---
ROUNDS Patient resting in bed, no S/S of distress/SOB or pain noted. Will continue to monitor Q1hr/PRN.
--- NOTE | 2019-07-24 19:15 | NUR ---
She denies any history of cardiac surgeries. Addendum: 07/24/19 at 1926 by WILSON CHRIS RN CORRECTION: CLOSING NOTE Endorsed care of patient to Esther AAORN RN.
[2019-07-24] MEDS: LATANOPROST 0.005 % OPTH(EYE) SOL 2.5ML OP SCH (21:01)
[2019-07-24] MEDS: METOPROLOL SUCCINATE XL 50 MG TAB PO SCH (21:02)
[2019-07-24 21:20] VITALS: BP 133/78
[2019-07-24] MEDS: KETOROLAC TROMETH 30 MG/ML 1ML VIAL IV PRN (22:22)
[2019-07-24] MEDS: ALPRAZolam 0.25 MG TAB PO PRN (22:22)
--- NOTE | 2019-07-24 22:30 | NUR ---
PAIN PATIENT C/O 5/10 ABDOMINAL PAIN REQUESTING TORADOL AND HER XANAX TO HELP HER RELAX TO GO SLEEP. ADMINISTERED TORADOL 30MG IV AND XANAX 0.25MG PO PRESCRIBED PATIENT TOLERATED WELL. PATIENT IN NO APPARENT CARDAIC OR PULMONARY DISTRESS. PATIENT HAS CALL LIGHT WITHIN REACH. WILL CONTINUE TO MONITOR PATIENT.
[2019-07-25 05:04] VITALS: BP 93/48
[2019-07-25] MEDS: SOD CHL 0.9%/ KCL 20MEQ 1,000 ML IV SCH (06:00)
[2019-07-25] MEDS: metroNIDAZOLE 500MG/100ML 100 ML IV SCH ×2 (06:00→14:41)
[2019-07-25] MEDS: DICYCLOMINE HCL 10 MG CAP PO SCH ×2 (06:00→14:40)
[2019-07-25 09:19] VITALS: BP 99/54
[2019-07-25] MEDS: PANTOPRAZOLE 40 MG TAB PO SCH (09:53)
[2019-07-25] MEDS: LEVOFLOXACIN 500MG 100 ML IV SCH (09:53)
[2019-07-25] MEDS: NIFEdipine ER 30 MG TAB PO SCH (09:54)
[2019-07-25] MEDS: FLORASTOR (S. BOULARDII) 250 MG CAP PO SCH (09:54)
[2019-07-25] MEDS: DORZOLAMIDE HCL 2% OPTH(EYE) SOL 10ML EACHEYE SCH (09:55)
[2019-07-25] MEDS ORDERED: cloNIDine HCL 0.1 MG TAB PO SCH (10:00)
--- NOTE | 2019-07-25 10:55 | NUR ---
OFF UNIT Patient taken off unit via wheelchair for xray. No S/S of distress noted.
--- NOTE | 2019-07-25 11:21 | NUR ---
RETURN TO UNIT Patient returned to unit via wheelchair.
--- NOTE | 2019-07-25 11:38 | NUR ---
AWARE Dr. Bryant aware of CXR results, states patient needs to be discharged with incentive spirometer.
[2019-07-25 12:58] VITALS: BP 125/68
[2019-07-25 13:22] VITALS: BP 118/67
--- NOTE | 2019-07-25 15:39 | NUR ---
DISCHARGE Discharge instructions given as ordered. Encouraged to follow up with PMD as instructed. All questions and concerns addressed. Patient verbalized understanding. Medication reconciliation form completed and copy given to patient. IV removed with catheter intact and pressure dressing applied. Patient ambulated to vehicle with all personal belongings, accompanied by family member. No distress noted at time of departure.
== END 2019-07-25 15:35 | disposition home or self-care (01) | DRG 392 ==
LOC: EEVIPCON 15:24 → ER 15:24 → OVERFLOW 15:25 → EAST 19:07
PROVIDERS: ADMIT Nurse Practitioner Acute Care; ATTEND Internal Medicine
DX: A08.8 Other specified intestinal infections (principal); I50.32 Chronic diastolic (congestive) heart failure; E87.6 Hypokalemia; E66.9 Obesity, unspecified; E11.9 Type 2 diabetes mellitus without complications; J45.909 Unspecified asthma, uncomplicated; F41.9 Anxiety disorder, unspecified; H40.9 Unspecified glaucoma; Z96.659 Presence of unspecified artificial knee joint; R73.03 Prediabetes; G47.30 Sleep apnea, unspecified; I11.0 Hypertensive heart disease with heart failure; K21.9 Gastro-esophageal reflux disease without esophagitis; Z86.73 Personal history of transient ischemic attack (TIA), and cerebral infarction without residual deficits; Z90.710 Acquired absence of both cervix and uterus; Z68.35 Body mass index [BMI] 35.0-35.9, adult
CPT/HCPCS: 36415; 71046; 74176; 80053; 81001; 83036; 83690; 83735; 84439; 84443; 85025; 85610; 85730; 87045; 87493; 87899; G0378; J1885; J1956; J2001; J2405; J3490

== ENCOUNTER → 2019-09-05 | Outpatient (CLI) | payer BC ==
[~2019-09-05] MED LIST changes: -AMLO5TAB15 PO; +ASPI-231 PO; +BIMA0.01 EACHEYE; +BIOT10TA2 PO; +BUDE0.5S IN; +CALC600T37 PO; -DYA375C PO; +LORA-622 PO; -LOS50T PO; -METO25TA36 PO; +MULT-242 OR; +NIFE30TA77 PO; -NORVASC PO; +OMEGCAP2 PO; -PANT1INJ3 PO; +PANT40TA2 PO; -PANTPAK PO; +POTA1080 PO; -RANITAB32 OR; +SIMV-13 PO; -SIMV-8 PO; +ZINC50TA2 PO
== END | disposition home or self-care (01) ==
LOC: LAB 13:29
PROVIDERS: ATTEND Internal Medicine Gastroenterology
DX: R19.7 Diarrhea, unspecified (principal)
CPT/HCPCS: 87522

== ENCOUNTER → 2020-02-03 | Outpatient (CLI) | payer BC ==
[~2020-02-03] MED LIST changes: +NIFE1TAB36 PO; -NIFE30TA77 PO
[2020-02-03 12:30] LABS: Basophils # (auto) 0.1 10 ^3/uL (0-0.2); Basophils % (auto) 1.2 % (0.0-2.0); Eosinophils # (auto) 0.1 10 ^3/uL (0-0.8); Eosinophils % (auto) 2.1 % (0.0-7.0); Hematocrit 41.8 % (36.0-46.0); Hemoglobin 14.3 g/dL (12.2-16.2); Lymphocytes # (auto) 2.1 10 ^3/uL (0.4-5.4); Lymphocytes % (auto) 33.3 % (10.0-50.0); Mean Corpuscular Hemoglobin 31.3 pg (28.0-32.0); Mean Corpuscular Hgb Conc. 34.3 g/dL (32.0-36.0); Mean Corpuscular Volume 91.4 fL (80.0-100.0); Monocytes # (auto) 0.4 10 ^3/uL (0-1.3); Monocytes % (auto) 6.2 % (0.0-12.0); Neutrophils # (auto) 3.6 10 ^3/uL (1.6-8.6); Neutrophils % (auto) 57.2 % (37.0-80.0); Platelet Count (auto) 267 10^3/uL (140-450); Red Blood Cells 4.57 10^6/uL (4.0-5.20); Red Cell Distribution Width 13.1 % (11.8-14.3); White Blood Cell 6.3 10^3/uL (4.4-10.8)
[2020-02-03 12:34] LABS: Urine Bacteria FEW /hpf (None Seen); Urine Blood Negative /uL (Negative); Urine Specific Gravity 1.003 (1.001-1.035); Urine WBC <1 /hpf (0 - 5)
[2020-02-03 13:04] LABS: Albumin 3.6 g/dL (3.4-5.0); Calcium 9.1 mg/dL (8.5-10.1)
[2020-02-03 13:07] LABS: BUN/Creatinine Ratio 15.6; Bilirubin, Total 0.6 mg/dL (0.2-1.0); Total Protein 7.7 g/dL (6.4-8.2)
== END | disposition home or self-care (01) ==
LOC: LAB 12:09
PROVIDERS: ATTEND Nurse Practitioner
DX: R73.9 Hyperglycemia, unspecified (principal); Z79.899 Other long term (current) drug therapy
CPT/HCPCS: 36415; 80053; 81001; 83036; 84443; 85025

== ENCOUNTER → 2020-05-19 | Outpatient (CLI) | payer OTHER ==
[~2020-05-19] MED LIST changes: -ZINC50TA2 PO; +ZINC50TA7 PO
== END | disposition home or self-care (01) ==
LOC: LAB 16:45
PROVIDERS: ATTEND Nurse Practitioner Family
DX: Z20.828 Contact with and (suspected) exposure to other viral communicable diseases (principal)
CPT/HCPCS: 87635

== ENCOUNTER → 2020-07-17 | Outpatient (CLI) | payer SELFPAY ==
[2020-07-17 12:51] LABS: Basophils # (auto) 0.1 10 ^3/uL (0-0.2); Basophils % (auto) 1.4 % (0.0-2.0); Eosinophils # (auto) 0.1 10 ^3/uL (0-0.8); Eosinophils % (auto) 1.6 % (0.0-7.0); Hematocrit 43.6 % (36.0-46.0); Lymphocytes # (auto) 2.3 10 ^3/uL (0.4-5.4); Lymphocytes % (auto) 36.6 % (10.0-50.0); Mean Corpuscular Hemoglobin 31.6 pg (28.0-32.0); Mean Corpuscular Hgb Conc. 34.5 g/dL (32.0-36.0); Mean Corpuscular Volume 91.5 fL (80.0-100.0); Monocytes # (auto) 0.4 10 ^3/uL (0-1.3); Monocytes % (auto) 6.1 % (0.0-12.0); Neutrophils # (auto) 3.4 10 ^3/uL (1.6-8.6); Neutrophils % (auto) 54.3 % (37.0-80.0); Nucleated Red Blood Cells % 0.1 %; Platelet Count (auto) 330 10^3/uL (140-450); Red Blood Cells 4.76 10^6/uL (4.0-5.20); Red Cell Distribution Width 12.7 % (11.8-14.3); White Blood Cell 6.2 10^3/uL (4.4-10.8)
[2020-07-17 13:18] LABS: Potassium 3.8 mmol/L (3.5-5.1)
[2020-07-17 13:20] LABS: Free T4 (Free Thyroxine) 1.07 ng/dL (0.89-1.76)
[2020-07-17 13:22] LABS: Folate (Folic Acid) > 24.00 ng/mL (5.38-24)
[2020-07-17 13:30] LABS: Albumin 4.1 g/dL (3.4-5.0); BUN/Creatinine Ratio 19.1; Bilirubin, Total 0.9 mg/dL (0.2-1.0); Calcium 9.7 mg/dL (8.5-10.1); Total Protein 8.3 g/dL (6.4-8.2)
== END | disposition home or self-care (01) ==
LOC: LAB 12:38
PROVIDERS: ATTEND Internal Medicine
DX: I10 Essential (primary) hypertension (principal); E03.9 Hypothyroidism, unspecified; E78.5 Hyperlipidemia, unspecified; I63.9 Cerebral infarction, unspecified
CPT/HCPCS: 36415; 80053; 80061; 82607; 82746; 83036; 84439; 84443; 85025

== ENCOUNTER → 2020-09-14 | Outpatient (CLI) | payer BC ==
[2020-09-14 17:30] LABS: Albumin 4.4 g/dL (3.4-5.0); Calcium 9.4 mg/dL (8.5-10.1); Potassium 3.6 mmol/L (3.5-5.1)
[2020-09-14 17:31] LABS: Basophils # (auto) 0.1 10 ^3/uL (0-0.2); Basophils % (auto) 1.1 % (0.0-2.0); Eosinophils # (auto) 0.1 10 ^3/uL (0-0.8); Eosinophils % (auto) 1.5 % (0.0-7.0); Hematocrit 44.1 % (36.0-46.0); Hemoglobin 14.9 g/dL (12.2-16.2); Lymphocytes # (auto) 3.3 10 ^3/uL (0.4-5.4); Lymphocytes % (auto) 35.9 % (10.0-50.0); Mean Corpuscular Hemoglobin 31.1 pg (28.0-32.0); Mean Corpuscular Hgb Conc. 33.8 g/dL (32.0-36.0); Mean Corpuscular Volume 91.9 fL (80.0-100.0); Monocytes # (auto) 0.6 10 ^3/uL (0-1.3); Monocytes % (auto) 6.2 % (0.0-12.0); Neutrophils # (auto) 5.1 10 ^3/uL (1.6-8.6); Neutrophils % (auto) 55.3 % (37.0-80.0); Nucleated Red Blood Cells % 0.1 %; Platelet Count (auto) 331 10^3/uL (140-450); Red Blood Cells 4.79 10^6/uL (4.0-5.20); Red Cell Distribution Width 12.7 % (11.8-14.3); White Blood Cell 9.2 10^3/uL (4.4-10.8)
[2020-09-14 17:34] LABS: BUN/Creatinine Ratio 16.7; Bilirubin, Total 0.7 mg/dL (0.2-1.0); Total Protein 8.7 g/dL (6.4-8.2)
[2020-09-14 17:43] LABS: Urine Bacteria FEW /hpf (None Seen); Urine Blood Negative /uL (Negative); Urine Specific Gravity 1.006 (1.001-1.035); Urine WBC 1 /hpf (0 - 5)
== END | disposition home or self-care (01) ==
LOC: LAB 16:46
PROVIDERS: ATTEND Internal Medicine
DX: E03.9 Hypothyroidism, unspecified (principal); Z20.828 Contact with and (suspected) exposure to other viral communicable diseases
CPT/HCPCS: 36415; 80053; 81001; 85025

== ENCOUNTER → 2021-01-15 | Day surgery (SDC) | payer BC ==
[2021-01-12 17:48] LABS: Basophils # (auto) 0.1 10 ^3/uL (0-0.2); Basophils % (auto) 1.4 % (0.0-2.0); Eosinophils # (auto) 0.2 10 ^3/uL (0-0.8); Eosinophils % (auto) 2.3 % (0.0-7.0); Hematocrit 42.2 % (36.0-46.0); Hemoglobin 14.5 g/dL (12.2-16.2); Lymphocytes # (auto) 2.7 10 ^3/uL (0.4-5.4); Lymphocytes % (auto) 37.2 % (10.0-50.0); Mean Corpuscular Hemoglobin 31.6 pg (28.0-32.0); Mean Corpuscular Hgb Conc. 34.5 g/dL (32.0-36.0); Mean Corpuscular Volume 91.7 fL (80.0-100.0); Monocytes # (auto) 0.5 10 ^3/uL (0-1.3); Monocytes % (auto) 6.8 % (0.0-12.0); Neutrophils # (auto) 3.8 10 ^3/uL (1.6-8.6); Neutrophils % (auto) 52.3 % (37.0-80.0); Nucleated Red Blood Cells % 0.1 %; Platelet Count (auto) 340 10^3/uL (140-450); Red Cell Distribution Width 12.6 % (11.8-14.3); White Blood Cell 7.2 10^3/uL (4.4-10.8)
[2021-01-12 18:36] LABS: INR 1.02 (0.9-1.15); Partial Thromboplastin Time 28.5 sec (23.0-31.2)
[~2021-01-15] VITALS: Ht 157.5 cm; Wt 79.8 kg
[~2021-01-15] MED LIST changes: -LATA0.0020 OP; +LIDOCAINE VISCOUS 2% 15ML UD ONE; +SODIUM CHLORIDE LOCK 10 ML ONE
[2021-01-15] MEDS: diphenhdrAMINE HCL 50 MG/1 ML VL ONE ×2 (12:10→12:28)
[2021-01-15] MEDS: fentaNYL CITRATE 100 MCG/2 ML VL ONE ×3 (12:10→12:25)
[2021-01-15] MEDS: MIDAZOLAM HCL 5 MG/ML-1ML VIAL ONE ×4 (12:10→12:34)
[2021-01-15 13:20] VITALS: BP 130/72
== END | disposition home or self-care (01) ==
LOC: GI 11:06
PROVIDERS: ATTEND Internal Medicine Gastroenterology
DX: R19.4 Change in bowel habit (principal); K29.70 Gastritis, unspecified, without bleeding; K31.89 Other diseases of stomach and duodenum; K63.89 Other specified diseases of intestine; G47.30 Sleep apnea, unspecified; E66.9 Obesity, unspecified; N94.9 Unspecified condition associated with female genital organs and menstrual cycle; J45.909 Unspecified asthma, uncomplicated; K21.9 Gastro-esophageal reflux disease without esophagitis; K44.9 Diaphragmatic hernia without obstruction or gangrene; Z20.822 Contact with and (suspected) exposure to COVID-19; Z98.890 Other specified postprocedural states; Z79.899 Other long term (current) drug therapy; Z68.32 Body mass index [BMI] 32.0-32.9, adult; Z90.710 Acquired absence of both cervix and uterus; Z86.19 Personal history of other infectious and parasitic diseases; Z79.82 Long term (current) use of aspirin
CPT/HCPCS: 36415; 43239; 45380; 85025; 85610; 85730; 88305; 88342; J1200; J2250; J3010; J7030; U0003; 99152; 99153

== ENCOUNTER 2021-10-09 14:43 | Emergency (ER) | payer BC ==
[~2021-10-09] VITALS: Ht 157.5 cm; Wt 78.5 kg
[~2021-10-09 14:43] MED LIST changes: -ASPI-231 PO; +ASPI1TAB20 PO; -LIDOCAINE VISCOUS 2% 15ML UD ONE; -SODIUM CHLORIDE LOCK 10 ML ONE
[2021-10-09] MEDS ORDERED: cefTRIAXone SOD 1,000 MG VL IM ONE (17:00)
[2021-10-09] MEDS ORDERED: ALBUTEROL SULF 2.5 MG/0.5ML(0.5%) NEB SOLN NEB ONE (17:00)
[2021-10-09] MEDS ORDERED: methylPREDNISolone SOD SUCC 125 MG/2 ML VL IM ONE (17:00)
[2021-10-09] MEDS ORDERED: IPRATROPIUM BROM 0.5 MG/2.5ML INH SOL NEB ONE (17:00)
[2021-10-09 17:01] VITALS: BP 120/72
[2021-10-09] MEDS ORDERED: LIDOCAINE 1% HCL (LOCAL ANESTH.) INJ 20ML MDV ONE (17:05)
== END 2021-10-09 18:12 | disposition home or self-care (01) ==
LOC: ER 14:43
DX: J45.909 Unspecified asthma, uncomplicated (principal); J01.90 Acute sinusitis, unspecified; E11.9 Type 2 diabetes mellitus without complications; I10 Essential (primary) hypertension; E78.5 Hyperlipidemia, unspecified; Z97.10 Presence of artificial limb (complete) (partial), unspecified; Z90.89 Acquired absence of other organs; Z20.822 Contact with and (suspected) exposure to COVID-19
CPT/HCPCS: 36415; 71046; 87426; 94640; 96372; 99284; J0696; J2001; J2930; J7644

== ENCOUNTER 2021-10-12 13:21 | Inpatient (IN) | payer BC ==
[~2021-10-12] VITALS: Ht 157.5 cm; Wt 85.7 kg
[2021-10-12] MEDS ORDERED: ALBUTEROL SULF 2.5 MG/0.5ML(0.5%) NEB SOLN NEB ONE (15:00)
[2021-10-12] MEDS ORDERED: IPRATROPIUM BROM 0.5 MG/2.5ML INH SOL NEB ONE (15:00)
[2021-10-12] MEDS ORDERED: HYDROcodone-ACET 5/325MG TAB PO PRN (15:30)
[2021-10-12] MEDS ORDERED: TEMAZEPAM 15 MG CAP PO PRN (15:30)
[2021-10-12] MEDS ORDERED: ALUM & MAG HYDROX-SIMETH LIQ(MAALOX) 30 ML PO PRN (15:30)
[2021-10-12] MEDS ORDERED: MORPHINE SULFATE INJECTION 2 MG/ML SYRG IV PRN (15:30)
[2021-10-12] MEDS ORDERED: ONDANSETRON HCL 4 MG/2 ML VIAL IV PRN (15:30)
[2021-10-12] MEDS ORDERED: HYDROmorphone HCL 2 MG/ML VL IV PRN (15:30)
[2021-10-12] MEDS ORDERED: DOCUSATE SOD 100 MG CAP PO PRN (15:30)
[2021-10-12] MEDS ORDERED: AZITHROMYCIN 500MG/ 250ML 250 ML IV ONE (15:30)
[2021-10-12] MEDS ORDERED: ACETAMINOPHEN 325 MG TAB PO PRN (15:30)
[2021-10-12] MEDS ORDERED: NITROGLYCERIN 0.4 MG SL TAB SL PRN (15:30)
[2021-10-12] MEDS ORDERED: FUROSEMIDE 20 MG/2 ML VIAL IV ONE (15:30)
[2021-10-12] MEDS ORDERED: LORazepam 0.5 MG TAB PO PRN (15:45)
[2021-10-12 16:24] VITALS: BP 127/77
[2021-10-12] MEDS ORDERED: SIMV40TA2 PO (16:42)
[2021-10-12] MEDS ORDERED: BENZ200C64 PO (16:47)
[2021-10-12] MEDS ORDERED: OLOP1DRO5 OP (16:47)
[2021-10-12] MEDS ORDERED: POM PO (16:47)
[2021-10-12 17:00] VITALS: BP 138/74
[2021-10-12] MEDS: methylPREDNISolone SOD SUCC 40 MG/ML VL IV SCH ×2 (17:40→23:30)
[2021-10-12 18:58] LABS: Basophils # (auto) 0 10 ^3/uL (0-0.2); Basophils % (auto) 0.3 % (0.0-2.0); Eosinophils # (auto) 0 10 ^3/uL (0-0.8); Eosinophils % (auto) 0.2 % (0.0-7.0); Hematocrit 43.6 % (36.0-46.0); Lymphocytes # (auto) 1.5 10 ^3/uL (0.4-5.4); Lymphocytes % (auto) 16.3 % (10.0-50.0); Mean Corpuscular Hemoglobin 31.4 pg (28.0-32.0); Mean Corpuscular Hgb Conc. 34.5 g/dL (32.0-36.0); Mean Corpuscular Volume 91.2 fL (80.0-100.0); Monocytes # (auto) 0.4 10 ^3/uL (0-1.3); Monocytes % (auto) 4.8 % (0.0-12.0); Neutrophils # (auto) 7.2 10 ^3/uL (1.6-8.6); Neutrophils % (auto) 78.4 % (37.0-80.0); Nucleated Red Blood Cells % 0.2 %; Red Blood Cells 4.78 10^6/uL (4.0-5.20); Red Cell Distribution Width 12.5 % (11.8-14.3); White Blood Cell 9.2 10^3/uL (4.4-10.8)
[2021-10-12 19:15] LABS: Albumin 3.8 g/dL (3.4-5.0); Calcium 9.1 mg/dL (8.5-10.1); Magnesium 2.5 mg/dL (1.6-2.6)
[2021-10-12 19:17] LABS: BUN/Creatinine Ratio 23.4
[2021-10-12 19:19] LABS: Bilirubin, Total 0.5 mg/dL (0.2-1.0); Total Protein 7.8 g/dL (6.4-8.2)
[2021-10-12 19:22] LABS: INR 0.98 (0.9-1.15); Partial Thromboplastin Time 27.1 sec (23.6-33.0)
[2021-10-12] MEDS: ALBUTEROL SULF 2.5 MG/0.5ML(0.5%) NEB SOLN NEB PRN (19:26)
[2021-10-12] MEDS: IPRATROPIUM BROM 0.5 MG/2.5ML INH SOL NEB PRN (19:27)
[2021-10-12] MEDS: ACETYLCYSTEINE 20%(200MG/ML) SOL 4ML NEB SCH (19:27)
[2021-10-12 20:00] VITALS: BP 132/66
[2021-10-12 20:12] LABS: Urine WBC None Seen /hpf (0 - 5)
[2021-10-12 20:22] LABS: Urine Bacteria NONE SEEN /hpf (None Seen); Urine Blood Negative /uL (Negative); Urine Specific Gravity 1.007 (1.001-1.035)
[2021-10-12 22:00] VITALS: BP 132/66
[2021-10-12] MEDS: SODIUM CHLOR 0.9% PF (SALINE LOCK) 10ML VIAL/SYR IV SCH (23:30)
[2021-10-12] MEDS: guaiFENesin-DM 100/10mg/5ml SYR PO PRN (23:39)
[2021-10-13] VITALS (7 sets, daily range): BP systolic 130–146; BP diastolic 66–77
[2021-10-13] MEDS: guaiFENesin-DM 100/10mg/5ml SYR PO PRN ×2 (04:45→21:58)
[2021-10-13] MEDS: methylPREDNISolone SOD SUCC 40 MG/ML VL IV SCH ×3 (05:53→17:34)
[2021-10-13] MEDS: SODIUM CHLOR 0.9% PF (SALINE LOCK) 10ML VIAL/SYR IV SCH ×3 (05:53→22:02)
[2021-10-13] MEDS: ACETYLCYSTEINE 20%(200MG/ML) SOL 4ML NEB SCH ×3 (07:46→22:03)
[2021-10-13] MEDS: ALBUTEROL SULF 2.5 MG/0.5ML(0.5%) NEB SOLN NEB PRN ×3 (07:46→22:04)
[2021-10-13] MEDS ORDERED: ENOXAPARIN SOD 30 MG/0.3 ML SYRINGE SC SCH (10:00)
[2021-10-13] MEDS ORDERED: AZITHROMYCIN 500MG/ 250ML 250 ML IV SCH (10:00)
[2021-10-13] MEDS: FUROSEMIDE 20 MG/2 ML VIAL IV SCH (10:01)
[2021-10-13] MEDS: levoFLOXacin 500MG 100 ML IV SCH (10:01)
[2021-10-13] MEDS: DORZOLAMIDE HCL 2% OPTH(EYE) SOL 10ML EACHEYE SCH ×2 (10:01→22:02)
[2021-10-13] MEDS: PANTOPRAZOLE 40 MG TAB PO SCH (10:02)
[2021-10-13] MEDS: AZELASTINE HCL 0.05% EACHEYE SCH ×2 (10:54→22:01)
[2021-10-13] MEDS ORDERED: ALPRAZolam 0.25 MG TAB PO PRN (11:30)
[2021-10-13] MEDS: cloNIDine HCL 0.1 MG TAB PO SCH (17:35)
[2021-10-13] MEDS: METOPROLOL SUCCINATE XL 50 MG TAB PO SCH (21:58)
[2021-10-13] MEDS: ATORVASTATIN 20 MG TAB PO SCH (21:58)
[2021-10-13] MEDS: AMOXICILLIN/CLAVUL 875 MG TAB PO SCH (21:59)
[2021-10-13] MEDS ORDERED: METOPROLOL TARTRATE 50 MG TAB PO ONE (22:00)
[2021-10-13] MEDS ORDERED: cloNIDine HCL 0.1 MG TAB PO ONE (22:00)
[2021-10-13] MEDS ORDERED: METOPROLOL TARTRATE 50 MG TAB PO SCH (22:00)
[2021-10-13] MEDS: LATANOPROST 0.005% EACHEYE SCH (22:01)
[2021-10-13] MEDS: IPRATROPIUM BROM 0.5 MG/2.5ML INH SOL NEB PRN (22:03)
[2021-10-14] MEDS: methylPREDNISolone SOD SUCC 40 MG/ML VL IV SCH ×5 (00:05→23:08)
[2021-10-14 05:00] VITALS: BP 141/71
[2021-10-14] MEDS: SODIUM CHLOR 0.9% PF (SALINE LOCK) 10ML VIAL/SYR IV SCH ×3 (06:26→21:53)
[2021-10-14] MEDS: cloNIDine HCL 0.1 MG TAB PO SCH ×2 (06:27→18:15)
[2021-10-14 06:29] LABS: Basophils # (auto) 0 10 ^3/uL (0-0.2); Eosinophils # (auto) 0 10 ^3/uL (0-0.8); Hematocrit 42.9 % (36.0-46.0); Hemoglobin 14.6 g/dL (12.2-16.2); Lymphocytes # (auto) 1.4 10 ^3/uL (0.4-5.4); Lymphocytes % (auto) 10.4 % (10.0-50.0); Mean Corpuscular Hemoglobin 31.4 pg (28.0-32.0); Mean Corpuscular Hgb Conc. 33.9 g/dL (32.0-36.0); Mean Corpuscular Volume 92.5 fL (80.0-100.0); Monocytes # (auto) 0.4 10 ^3/uL (0-1.3); Monocytes % (auto) 3.1 % (0.0-12.0); Neutrophils # (auto) 11.9 10 ^3/uL (1.6-8.6); Neutrophils % (auto) 86.5 % (37.0-80.0); Red Blood Cells 4.64 10^6/uL (4.0-5.20); Red Cell Distribution Width 12.8 % (11.8-14.3); White Blood Cell 13.8 10^3/uL (4.4-10.8)
[2021-10-14 06:39] LABS: Albumin 2.9 g/dL (3.4-5.0); Calcium 8.4 mg/dL (8.5-10.1); Magnesium 3.1 mg/dL (1.6-2.6)
[2021-10-14 06:43] LABS: BUN/Creatinine Ratio 24.1; Bilirubin, Total 0.4 mg/dL (0.2-1.0); Total Protein 6.7 g/dL (6.4-8.2)
[2021-10-14] MEDS: ACETYLCYSTEINE 20%(200MG/ML) SOL 4ML NEB SCH (07:52)
[2021-10-14] MEDS: IPRATROPIUM BROM 0.5 MG/2.5ML INH SOL NEB PRN ×3 (07:52→22:23)
[2021-10-14] MEDS: ALBUTEROL SULF 2.5 MG/0.5ML(0.5%) NEB SOLN NEB PRN ×3 (07:52→22:23)
[2021-10-14 09:00] VITALS: BP 132/63
[2021-10-14] MEDS: AZELASTINE HCL 0.05% EACHEYE SCH ×2 (09:45→21:52)
[2021-10-14] MEDS: DORZOLAMIDE HCL 2% OPTH(EYE) SOL 10ML EACHEYE SCH ×2 (09:45→21:52)
[2021-10-14] MEDS: levoFLOXacin 500MG 100 ML IV SCH (09:46)
[2021-10-14] MEDS: FUROSEMIDE 20 MG/2 ML VIAL IV SCH (09:46)
[2021-10-14] MEDS: AMOXICILLIN/CLAVUL 875 MG TAB PO SCH ×2 (09:46→21:53)
[2021-10-14] MEDS: NIFEdipine ER 30 MG TAB PO SCH (09:47)
[2021-10-14] MEDS: PANTOPRAZOLE 40 MG TAB PO SCH (09:47)
[2021-10-14 13:00] VITALS: BP 145/71
[2021-10-14 17:00] VITALS: BP 127/56
[2021-10-14 20:05] VITALS: BP 132/68
[2021-10-14] MEDS: LATANOPROST 0.005% EACHEYE SCH (21:52)
[2021-10-14] MEDS: ATORVASTATIN 20 MG TAB PO SCH (21:53)
[2021-10-14] MEDS: METOPROLOL SUCCINATE XL 50 MG TAB PO SCH (21:54)
[2021-10-14 23:08] VITALS: BP 112/62
[2021-10-15] MEDS: guaiFENesin-DM 100/10mg/5ml SYR PO PRN (01:58)
[2021-10-15 05:00] VITALS: BP 112/77
[2021-10-15 06:25] LABS: Potassium 4.3 mmol/L (3.5-5.1)
[2021-10-15 06:31] LABS: BUN/Creatinine Ratio 29.9; Calcium 8.5 mg/dL (8.5-10.1); Magnesium 3.4 mg/dL (1.6-2.6)
[2021-10-15] MEDS: SODIUM CHLOR 0.9% PF (SALINE LOCK) 10ML VIAL/SYR IV SCH (06:36)
[2021-10-15] MEDS: methylPREDNISolone SOD SUCC 40 MG/ML VL IV SCH (06:36)
[2021-10-15] MEDS: cloNIDine HCL 0.1 MG TAB PO SCH (06:37)
[2021-10-15 09:00] VITALS: BP 122/63
[2021-10-15] MEDS: FUROSEMIDE 20 MG/2 ML VIAL IV SCH (10:00)
[2021-10-15] MEDS: levoFLOXacin 500MG 100 ML IV SCH (10:00)
[2021-10-15] MEDS: AMOXICILLIN/CLAVUL 875 MG TAB PO SCH (10:01)
[2021-10-15] MEDS: PANTOPRAZOLE 40 MG TAB PO SCH (10:02)
[2021-10-15] MEDS: NIFEdipine ER 30 MG TAB PO SCH (10:02)
[2021-10-15] MEDS: DORZOLAMIDE HCL 2% OPTH(EYE) SOL 10ML EACHEYE SCH (10:07)
[2021-10-15] MEDS: AZELASTINE HCL 0.05% EACHEYE SCH (10:07)
[2021-10-15] MEDS: IPRATROPIUM BROM 0.5 MG/2.5ML INH SOL NEB PRN (10:30)
[2021-10-15] MEDS: ALBUTEROL SULF 2.5 MG/0.5ML(0.5%) NEB SOLN NEB PRN (10:30)
[2021-10-15 11:18] VITALS: BP 121/64
== END 2021-10-15 13:30 | disposition home or self-care (01) | DRG 189 ==
LOC: WEST WING 14:15 → TELE-WESTW 22:43
PROVIDERS: ADMIT Internal Medicine; ATTEND Internal Medicine
DX: J96.00 Acute respiratory failure, unspecified whether with hypoxia or hypercapnia (principal); I50.33 Acute on chronic diastolic (congestive) heart failure; J44.1 Chronic obstructive pulmonary disease with (acute) exacerbation; J98.11 Atelectasis; Z20.822 Contact with and (suspected) exposure to COVID-19; R73.03 Prediabetes; A49.1 Streptococcal infection, unspecified site; I11.0 Hypertensive heart disease with heart failure; E66.9 Obesity, unspecified; Z68.34 Body mass index [BMI] 34.0-34.9, adult; Z82.49 Family history of ischemic heart disease and other diseases of the circulatory system
CPT/HCPCS: 36415; 70486; 71250; 80048; 80053; 81001; 82306; 83036; 83735; 83880; 84484; 85025; 85610; 85730; 87040; 87070; 87077; 87186; 87205; 87426; 87880; 94640; G0378; J1956

== ENCOUNTER → 2021-10-21 | Outpatient (CLI) | payer BC ==
[~2021-10-21] MED LIST changes: +BENZ200C64 PO; -BUDE0.5S IN; -CALC600T37 PO; -MULT-242 OR; +OLOP1DRO5 OP; +POM PO; -POTA1080 PO; -SIMV-13 PO; +SIMV40TA2 PO
== END | disposition home or self-care (01) ==
LOC: LAB 16:55
PROVIDERS: ATTEND Internal Medicine
DX: E85.4 Organ-limited amyloidosis (principal); J99 Respiratory disorders in diseases classified elsewhere; Z16.12 Extended spectrum beta lactamase (ESBL) resistance
CPT/HCPCS: 87070; 87077; 87186; 87205

== ENCOUNTER 2021-12-18 10:21 | Emergency (ER) | payer BC ==
[~2021-12-18] VITALS: Ht 157.5 cm; Wt 79.4 kg
[2021-12-18 11:24] LABS: Basophils # (auto) 0.1 10 ^3/uL (0-0.2); Basophils % (auto) 1.2 % (0.0-2.0); Eosinophils # (auto) 0.1 10 ^3/uL (0-0.8); Eosinophils % (auto) 1.6 % (0.0-7.0); Lymphocytes # (auto) 1.7 10 ^3/uL (0.4-5.4); Lymphocytes % (auto) 23.1 % (10.0-50.0); Mean Corpuscular Hemoglobin 31.2 pg (28.0-32.0); Mean Corpuscular Hgb Conc. 34.2 g/dL (32.0-36.0); Mean Corpuscular Volume 91.4 fL (80.0-100.0); Monocytes # (auto) 0.4 10 ^3/uL (0-1.3); Monocytes % (auto) 5.3 % (0.0-12.0); Neutrophils % (auto) 68.8 % (37.0-80.0); Nucleated Red Blood Cells % 0.1 %; Red Blood Cells 4.49 10^6/uL (4.0-5.20); White Blood Cell 7.3 10^3/uL (4.4-10.8)
[2021-12-18 11:40] LABS: Albumin 3.9 g/dL (3.4-5.0); Calcium 9.1 mg/dL (8.5-10.1); Potassium 3.4 mmol/L (3.5-5.1)
[2021-12-18 11:48] LABS: BUN/Creatinine Ratio 11.8; Bilirubin, Total 0.7 mg/dL (0.2-1.0); Total Protein 7.3 g/dL (6.4-8.2)
[2021-12-18 12:37] VITALS: BP 169/87
[2021-12-18] MEDS ORDERED: MECLIZINE HCL 25 MG TAB PO ONE (12:45)
[2021-12-18 13:07] LABS: Urine Bacteria NONE SEEN /hpf (None Seen); Urine Blood Negative /uL (Negative); Urine WBC <1 /hpf (0 - 5)
[2021-12-18] MEDS ORDERED: AMOX-277 PO (13:35)
[2021-12-18] MEDS ORDERED: MECL1TAB42 PO (13:35)
== END 2021-12-18 13:39 | disposition home or self-care (01) ==
LOC: EEVIPCON 10:21 → ER 10:21
DX: R42 Dizziness and giddiness (principal); M48.00 Spinal stenosis, site unspecified; H65.01 Acute serous otitis media, right ear; I10 Essential (primary) hypertension; E11.9 Type 2 diabetes mellitus without complications; J45.909 Unspecified asthma, uncomplicated; E78.5 Hyperlipidemia, unspecified; Z90.710 Acquired absence of both cervix and uterus; Z86.73 Personal history of transient ischemic attack (TIA), and cerebral infarction without residual deficits; Z90.89 Acquired absence of other organs
CPT/HCPCS: 36415; 70450; 71046; 80053; 81001; 83735; 84484; 85025; 93005; 99285; J8597

== ENCOUNTER → 2022-06-21 | Outpatient (CLI) | payer BC, MEDICARE ==
[~2022-06-21] MED LIST changes: +AMOX-277 PO; +ASCO100076 PO; +CALC1TAB92 PO; +MECL1TAB42 PO; +POM
[2022-06-21 11:41] LABS: Basophils # (auto) 0.1 10 ^3/uL (0-0.2); Basophils % (auto) 1.9 % (0.0-2.0); Eosinophils # (auto) 0.3 10 ^3/uL (0-0.8); Hematocrit 42.6 % (36.0-46.0); Lymphocytes # (auto) 2.4 10 ^3/uL (0.4-5.4); Lymphocytes % (auto) 39.1 % (10.0-50.0); Mean Corpuscular Hemoglobin 30.1 pg (28.0-32.0); Mean Corpuscular Hgb Conc. 32.8 g/dL (32.0-36.0); Mean Corpuscular Volume 91.7 fL (80.0-100.0); Monocytes # (auto) 0.4 10 ^3/uL (0-1.3); Monocytes % (auto) 5.7 % (0.0-12.0); Neutrophils % (auto) 48.3 % (37.0-80.0); Nucleated Red Blood Cells % 0.2 %; Red Blood Cells 4.65 10^6/uL (4.0-5.20); White Blood Cell 6.2 10^3/uL (4.4-10.8)
[2022-06-21 12:08] LABS: INR 0.96 (0.9-1.15); Partial Thromboplastin Time 29.6 sec (24.6-33.4)
[2022-06-21 12:31] LABS: Albumin 3.9 g/dL (3.4-5.0); Calcium 9.9 mg/dL (8.5-10.1); Potassium 3.9 mmol/L (3.5-5.1)
[2022-06-21 12:35] LABS: BUN/Creatinine Ratio 18.2; Bilirubin, Total 0.7 mg/dL (0.2-1.0); Total Protein 7.6 g/dL (6.4-8.2)
== END | disposition home or self-care (01) ==
LOC: LAB 11:09
PROVIDERS: ATTEND Internal Medicine
DX: Z01.812 Encounter for preprocedural laboratory examination (principal); I63.40 Cerebral infarction due to embolism of unspecified cerebral artery
CPT/HCPCS: 36415; 80053; 80061; 83036; 84439; 84443; 85025; 85610; 85730

== ENCOUNTER 2022-06-22 08:20 | Day surgery (SDC) | payer BC, MEDICARE ==
[~2022-06-22] VITALS: Ht 154.9 cm; Wt 81.6 kg
[~2022-06-22 08:20] MED LIST changes: -AMOX-277 PO; -BENZ200C64 PO; -MECL1TAB42 PO; -POM PO; -TRIATAB3 PO
[2022-06-22] MEDS ORDERED: MIDAZOLAM HCL 2MG/2ML 2ml VIAL (1mg/ml) IV ONE (09:30)
[2022-06-22] MEDS ORDERED: LIDOCAINE VISCOUS 2% 15ML UD PO ONE (09:30)
[2022-06-22] MEDS ORDERED: fentaNYL CITRATE 100 MCG/2 ML VL IV ONE (09:30)
[2022-06-22] MEDS ORDERED: HEPARIN SODIUM (PORCINE) 5000 UNITS/ML 1ML VIAL ONE (11:37)
[2022-06-22] MEDS ORDERED: RIVAROXABAN 20 MG TAB PO ONE (11:45)
[2022-06-22 11:52] VITALS: BP 160/70
== END 2022-06-22 13:20 | disposition home or self-care (01) ==
LOC: CATH 08:20
PROVIDERS: ATTEND Internal Medicine
DX: I63.40 Cerebral infarction due to embolism of unspecified cerebral artery (principal); I50.9 Heart failure, unspecified; J44.9 Chronic obstructive pulmonary disease, unspecified; G47.30 Sleep apnea, unspecified; Z90.710 Acquired absence of both cervix and uterus; Z98.891 History of uterine scar from previous surgery; Z82.49 Family history of ischemic heart disease and other diseases of the circulatory system; Z20.822 Contact with and (suspected) exposure to COVID-19
CPT/HCPCS: 93312; J1644; J2250; J3010; J7030; U0003; 99152

== ENCOUNTER 2022-09-16 12:34 | Emergency (ER) | payer BC, MEDICARE ==
[~2022-09-16] VITALS: Ht 154.9 cm; Wt 79.5 kg
[2022-09-16] MEDS ORDERED: SODIUM CHLORIDE 0.9% 1,000 ML IV ONE ×2 (12:45→18:30)
[2022-09-16 13:10] LABS: Urine WBC None Seen /hpf (0 - 5)
[2022-09-16 13:20] LABS: Urine Bacteria NONE SEEN /hpf (None Seen); Urine Blood Negative /uL (Negative); Urine Specific Gravity 1.002 (1.001-1.035)
[2022-09-16] MEDS ORDERED: LORazepam 2MG/ML-1ML VIAL IV ONE (13:45)
[2022-09-16 14:30] LABS: Albumin 4.2 g/dL (3.4-5.0); BUN/Creatinine Ratio 12.6; Calcium 9.7 mg/dL (8.5-10.1)
[2022-09-16 14:32] LABS: Bilirubin, Total 0.4 mg/dL (0.2-1.0); Total Protein 7.9 g/dL (6.4-8.2)
[2022-09-16 14:38] LABS: Basophils # (auto) 0.1 10 ^3/uL (0-0.2); Basophils % (auto) 1.2 % (0.0-2.0); Eosinophils # (auto) 0.2 10 ^3/uL (0-0.8); Eosinophils % (auto) 2.8 % (0.0-7.0); Hematocrit 45.8 % (36.0-46.0); Hemoglobin 15.4 g/dL (12.2-16.2); Lymphocytes # (auto) 2.9 10 ^3/uL (0.4-5.4); Lymphocytes % (auto) 44.7 % (10.0-50.0); Mean Corpuscular Hemoglobin 31.4 pg (28.0-32.0); Mean Corpuscular Hgb Conc. 33.7 g/dL (32.0-36.0); Mean Corpuscular Volume 93.1 fL (80.0-100.0); Monocytes # (auto) 0.4 10 ^3/uL (0-1.3); Monocytes % (auto) 6.7 % (0.0-12.0); Neutrophils # (auto) 2.9 10 ^3/uL (1.6-8.6); Neutrophils % (auto) 44.6 % (37.0-80.0); Nucleated Red Blood Cells % 0.1 %; Red Blood Cells 4.91 10^6/uL (4.0-5.20); Red Cell Distribution Width 12.5 % (11.8-14.3); White Blood Cell 6.4 10^3/uL (4.4-10.8)
[2022-09-16 19:45] VITALS: BP 128/77
== END 2022-09-16 20:52 | disposition home or self-care (01) ==
LOC: ER 12:36
DX: G45.9 Transient cerebral ischemic attack, unspecified (principal); E11.9 Type 2 diabetes mellitus without complications; I10 Essential (primary) hypertension; E78.5 Hyperlipidemia, unspecified; J45.909 Unspecified asthma, uncomplicated; Z90.710 Acquired absence of both cervix and uterus; Z90.89 Acquired absence of other organs
CPT/HCPCS: 36415; 70545; 70547; 71045; 80053; 81001; 84484; 85025; 93005; 96374; 99285; J2060

== ENCOUNTER 2023-03-07 08:32 | Emergency (ER) | payer BC, MEDICARE ==
[~2023-03-07] VITALS: Ht 154.9 cm; Wt 73.0 kg
[2023-03-07 09:26] LABS: Urine Bacteria NONE SEEN /hpf (None Seen); Urine Blood Negative /uL (Negative); Urine Specific Gravity 1.014 (1.001-1.035); Urine WBC 1 /hpf (0 - 5)
[2023-03-07 09:29] LABS: Basophils # (auto) 0.1 10 ^3/uL (0-0.2); Basophils % (auto) 1.2 % (0.0-2.0); Eosinophils # (auto) 0.1 10 ^3/uL (0-0.8); Eosinophils % (auto) 1.8 % (0.0-7.0); Hematocrit 42.3 % (36.0-46.0); Hemoglobin 14.7 g/dL (12.2-16.2); Lymphocytes # (auto) 1.5 10 ^3/uL (0.4-5.4); Lymphocytes % (auto) 21.6 % (10.0-50.0); Mean Corpuscular Hgb Conc. 34.6 g/dL (32.0-36.0); Mean Corpuscular Volume 92.4 fL (80.0-100.0); Monocytes # (auto) 0.4 10 ^3/uL (0-1.3); Monocytes % (auto) 5.7 % (0.0-12.0); Neutrophils % (auto) 69.7 % (37.0-80.0); Nucleated Red Blood Cells % 0.1 %; Red Blood Cells 4.58 10^6/uL (4.0-5.20); Red Cell Distribution Width 12.9 % (11.8-14.3); White Blood Cell 7.1 10^3/uL (4.4-10.8)
[2023-03-07 09:42] LABS: INR 1.29 (0.9-1.15); Partial Thromboplastin Time 42.7 sec (24.6-33.4)
[2023-03-07] MEDS ORDERED: LORazepam 2MG/ML-1ML VIAL IV ONE (10:15)
[2023-03-07 10:25] LABS: BUN/Creatinine Ratio 15.6 (10.0-20.0); Calcium 9.5 mg/dL (8.5-10.1); Potassium 3.6 mmol/L (3.5-5.1)
[2023-03-07 10:26] LABS: Albumin 3.9 g/dL (3.4-5.0); Bilirubin, Total 0.7 mg/dL (0.2-1.0); Magnesium 2.3 mg/dL (1.6-2.6); Total Protein 7.4 g/dL (6.4-8.2)
[2023-03-07 12:00] VITALS: BP 110/67
[2023-03-07] MEDS ORDERED: MECL1TAB42 PO (12:34)
== END 2023-03-07 13:09 | disposition home or self-care (01) ==
LOC: ER 08:32 → EEVIPCON 08:32 → ER 13:08
DX: R42 Dizziness and giddiness (principal); F41.9 Anxiety disorder, unspecified; J45.909 Unspecified asthma, uncomplicated; E11.9 Type 2 diabetes mellitus without complications; I11.9 Hypertensive heart disease without heart failure; Z86.73 Personal history of transient ischemic attack (TIA), and cerebral infarction without residual deficits; Z90.711 Acquired absence of uterus with remaining cervical stump; Z90.89 Acquired absence of other organs; Z98.890 Other specified postprocedural states
CPT/HCPCS: 36415; 70450; 70551; 71045; 80053; 81001; 83735; 83880; 84484; 85025; 85610; 85730; 93005; 93886; 96374; 99285; J2060

== ENCOUNTER → 2023-05-10 | Outpatient (CLI) | payer BC, MEDICARE ==
[~2023-05-10] MED LIST changes: +LATA0.008 EACHEYE; +MECL1TAB42 PO; +OLOP1DRO OP; -OLOP1DRO5 OP; -SIMV40TA2 PO; +SIMV40TA42 PO
[2023-05-10 13:49] LABS: Basophils # (auto) 0.1 10 ^3/uL (0-0.2); Basophils % (auto) 1.3 % (0.0-2.0); Eosinophils # (auto) 0.1 10 ^3/uL (0-0.8); Eosinophils % (auto) 1.9 % (0.0-7.0); Hematocrit 40.7 % (36.0-46.0); Hemoglobin 14.1 g/dL (12.2-16.2); Lymphocytes % (auto) 34.1 % (10.0-50.0); Mean Corpuscular Hgb Conc. 34.7 g/dL (32.0-36.0); Mean Corpuscular Volume 92.3 fL (80.0-100.0); Monocytes # (auto) 0.4 10 ^3/uL (0-1.3); Monocytes % (auto) 6.7 % (0.0-12.0); Neutrophils # (auto) 3.2 10 ^3/uL (1.6-8.6); Nucleated Red Blood Cells % 0.1 %; Red Blood Cells 4.41 10^6/uL (4.0-5.20); Red Cell Distribution Width 12.5 % (11.8-14.3); White Blood Cell 5.7 10^3/uL (4.4-10.8)
[2023-05-10 14:03] LABS: Albumin 3.9 g/dL (3.4-5.0); Calcium 8.9 mg/dL (8.5-10.1); Potassium 3.7 mmol/L (3.5-5.1)
[2023-05-10 14:08] LABS: BUN/Creatinine Ratio 21.7 (10.0-20.0); Bilirubin, Total 0.6 mg/dL (0.2-1.0); INR 1.22 (0.9-1.15); Partial Thromboplastin Time 40.4 SEC (24.5-34.5); Total Protein 7.4 g/dL (6.4-8.2)
== END | disposition home or self-care (01) ==
LOC: LAB 13:22
PROVIDERS: ATTEND Internal Medicine Interventional Cardiology
DX: Z01.812 Encounter for preprocedural laboratory examination (principal)
CPT/HCPCS: 36415; 80053; 85025; 85610; 85730

== ENCOUNTER → 2023-12-05 | Outpatient (CLI) | payer BC, MEDICARE | END | disposition home or self-care (01) | LOC: LAB 13:33 | PROVIDERS: ATTEND Internal Medicine | DX: R73.03 Prediabetes (principal) | CPT/HCPCS: 36415; 83036 ==

== ENCOUNTER → 2024-03-01 | Outpatient (CLI) | payer BC, MEDICARE ==
[~2024-03-01] MED LIST changes: -OLOP1DRO OP; +[UNRECOGNIZED DRUG - CODE] OP
== END | disposition home or self-care (01) ==
LOC: LAB 13:50
PROVIDERS: ATTEND Family Medicine
DX: L82.1 Other seborrheic keratosis (principal); D48.5 Neoplasm of uncertain behavior of skin

== ENCOUNTER → 2024-03-22 | Outpatient (CLI) | payer BC, MEDICARE | END | disposition home or self-care (01) | LOC: LAB 17:00 | PROVIDERS: ATTEND Family Medicine | DX: L82.1 Other seborrheic keratosis (principal); D48.5 Neoplasm of uncertain behavior of skin ==

== ENCOUNTER → 2024-04-30 | Outpatient (CLI) | payer BC, MEDICARE | END | disposition home or self-care (01) | LOC: XYW 10:04 | PROVIDERS: ATTEND Internal Medicine | DX: I07.1 Rheumatic tricuspid insufficiency (principal); I10 Essential (primary) hypertension; Z95.818 Presence of other cardiac implants and grafts | CPT/HCPCS: 93306 ==

== ENCOUNTER 2024-06-18 06:15 | Day surgery (SDC) | payer BC, MEDICARE ==
[2024-06-14 11:45] LABS: Urine Bacteria None Seen /hpf (None Seen)
[2024-06-14 11:49] LABS: Basophils # (auto) 0.1 10 ^3/uL (0-0.2); Eosinophils # (auto) 0.1 10 ^3/uL (0-0.8); Eosinophils % (auto) 1.8 % (0.0-7.0); Hematocrit 40.9 % (36.0-46.0); Hemoglobin 14.2 g/dL (12.2-16.2); Lymphocytes % (auto) 25.7 % (10.0-50.0); Mean Corpuscular Hemoglobin 32.3 pg (28.0-32.0); Mean Corpuscular Hgb Conc. 34.8 g/dL (32.0-36.0); Monocytes # (auto) 0.5 10 ^3/uL (0-1.3); Monocytes % (auto) 5.9 % (0.0-12.0); Neutrophils # (auto) 5.2 10 ^3/uL (1.6-8.6); Neutrophils % (auto) 65.6 % (37.0-80.0); Platelet Count (auto) 320 10^3/uL (140-450); Red Cell Distribution Width 12.6 % (11.8-14.3); White Blood Cell 7.9 10^3/uL (4.4-10.8)
[2024-06-14 11:53] LABS: Urine Blood Negative /uL (Negative); Urine Clarity Clear (Clear); Urine Color Light-Yellow (Yellow); Urine Protein, UAD Negative (Negative); Urine Specific Gravity 1.011 (1.001-1.035); Urine Urobilinogen Normal (Negative); Urine WBC <1 /hpf (0 - 5)
[2024-06-14 12:12] LABS: INR 0.99 (0.9-1.15); Partial Thromboplastin Time 28.7 SEC (24.5-34.5); Prothrombin Time 10.5 sec (9.3-11.8)
[2024-06-14 12:56] LABS: Alanine Aminotransferase 29 U/L (7-40); Albumin 4.4 g/dL (3.2-4.8); Alkaline Phosphatase 54 U/L (46-116); Anion Gap 5 (5-15); Aspartate Aminotransferase 20 U/L (13-40); BUN/Creatinine Ratio 16.1 (10.0-20.0); Bilirubin, Total 0.8 mg/dL (0.2-1.0); Blood Urea Nitrogen 14 mg/dL (9-23); Calcium 9.5 mg/dL (8.7-10.4); Carbon Dioxide 30 mmol/L (20-30); Chloride 103 mmol/L (98-107); Glucose 130 mg/dL (74-106); Potassium 3.5 mmol/L (3.5-5.1); Sodium 138 mmol/L (136-145); Total Protein 7.4 g/dL (5.7-8.2)
[~2024-06-18] VITALS: Ht 157.5 cm; Wt 75.3 kg
[~2024-06-18 06:15] MED LIST changes: -BIMA0.01 EACHEYE; -CALC1TAB92 PO; +CYAN500T39 PO; +ESTR10TA5 VA; +FLUT500M2 IN; -MECL1TAB42 PO; -OMEGCAP2 PO; +POTA99TA3 PO; +PYRI1TAB11 PO; +TRIA75TA55 PO; -[UNRECOGNIZED DRUG - CODE] OP
[2024-06-18] MEDS ORDERED: ETOMIDATE (2MG/ML) 20ML VIAL IV ONE (06:16)
[2024-06-18] MEDS ORDERED: ceFAZolin 2 GM/D5W50ml 50 ML IV ONE (06:42)
[2024-06-18] MEDS ORDERED: EPINEPHrine HCL 1 MG/1 ML AMP ONE ×3 (07:05→09:03)
[2024-06-18] MEDS ORDERED: BUPIVACAINE HCL 50 ML ONE (07:06)
[2024-06-18] MEDS ORDERED: fentaNYL CITRATE 100 MCG/2 ML VL ONE (07:35)
[2024-06-18] MEDS ORDERED: MIDAZOLAM HCL 2MG/2ML 2ml VIAL (1mg/ml) ONE (07:35)
[2024-06-18] MEDS ORDERED: HYDROmorphone HCL 2 MG/ML VL/or syr ONE (07:35)
[2024-06-18] MEDS ORDERED: DexAMETHasone SOD PHOS 10MG/1ML VIAL INJ ONE (07:43)
[2024-06-18] MEDS ORDERED: LIDOCAINE 2% JELLY 11ml (GLYDO) ONE (07:44)
[2024-06-18] MEDS ORDERED: MIDAZOLAM HCL 2MG/2ML 2ml VIAL (1mg/ml) IV PRN (08:15)
[2024-06-18] MEDS ORDERED: ePHEDrine SULFATE 50 MG/ML AMP IV PRN (08:15)
[2024-06-18] MEDS ORDERED: ONDANSETRON HCL 4 MG/2 ML VIAL IV ONE (08:15)
[2024-06-18] MEDS ORDERED: HYDROmorphone HCL 2 MG/ML VL/or syr IV PRN (08:15)
[2024-06-18] MEDS ORDERED: MORPHINE SULFATE 4 MG/ML SYR/VIAL IV PRN (08:15)
[2024-06-18] MEDS ORDERED: PROPOFOL 10 MG/ML 20 ML IV ONE (09:22)
[2024-06-18] MEDS ORDERED: ROPIVACAINE 0.5% (5MG/ML) 20ML AMPULE IJ ONE (09:29)
[2024-06-18] MEDS ORDERED: SUGAMMADEX 200mg/2ml Vial (100MG/ML) IV ONE (09:37)
[2024-06-18] MEDS ORDERED: ROCURONIUM 10MG/ML 10ML VIAL IV ONE (10:00)
[2024-06-18 10:04] VITALS: TEMP 97.4
[2024-06-18] MEDS ORDERED: HYDR1TAB97 PO (10:50)
[2024-06-18] MEDS ORDERED: CEPH500C PO (10:51)
[2024-06-18 12:05] VITALS: BP 148/78; PULSE 75; RESP 13; O2SAT 93
== END 2024-06-18 12:05 | disposition home or self-care (01) ==
LOC: SUR 06:15
PROVIDERS: ATTEND Orthopaedic Surgery Sports Medicine
DX: M75.121 Complete rotator cuff tear or rupture of right shoulder, not specified as traumatic (principal); M25.811 Other specified joint disorders, right shoulder; M94.211 Chondromalacia, right shoulder; M65.811 Other synovitis and tenosynovitis, right shoulder; S46.211A Strain of muscle, fascia and tendon of other parts of biceps, right arm, initial encounter; S43.081A Other subluxation of right shoulder joint, initial encounter; M75.41 Impingement syndrome of right shoulder; M24.111 Other articular cartilage disorders, right shoulder; X58.XXXA Exposure to other specified factors, initial encounter; Y93.89 Activity, other specified; Y92.89 Other specified places as the place of occurrence of the external cause; Y99.8 Other external cause status; I11.0 Hypertensive heart disease with heart failure; I50.20 Unspecified systolic (congestive) heart failure; I42.9 Cardiomyopathy, unspecified; I25.10 Atherosclerotic heart disease of native coronary artery without angina pectoris; E11.9 Type 2 diabetes mellitus without complications; J44.9 Chronic obstructive pulmonary disease, unspecified; K21.9 Gastro-esophageal reflux disease without esophagitis; G47.33 Obstructive sleep apnea (adult) (pediatric); E66.01 Morbid (severe) obesity due to excess calories; Z68.30 Body mass index [BMI] 30.0-30.9, adult; Z79.899 Other long term (current) drug therapy; Z86.19 Personal history of other infectious and parasitic diseases; Z86.73 Personal history of transient ischemic attack (TIA), and cerebral infarction without residual deficits; Z98.890 Other specified postprocedural states
CPT/HCPCS: 29826; 29827; 29828; 36415; 64415; 80053; 81001; 85025; 85610; 85730; C1713; J0171; J0690; J1100; J1170; J2250; J2371; J2405; J2704; J2795; J3010; J3490; A4565